=== PATIENT | male | born 1970 | race Hispanic/Latino ===

== ENCOUNTER 2021-09-22 17:33 | Inpatient (IN) | payer SELFPAY ==
[2021-09-22] MEDS ORDERED: NITROGLYCERIN 2% OINT 1 GM TP ONE (19:43)
[2021-09-22] MEDS ORDERED: cloNIDine 0.2 MG TAB PO ONE (19:43)
--- NOTE | 2021-09-22 20:01 | Emergency Department Report ---
HPI - General Chief Complaint: Chest Pain Time Seen by Provider: 09/22/21 19:40 - HPI HPI: Room 2 The patient is a 50-year-old male present with chief complaint of chest pain. The patient states earlier today she developed substernal chest pain and pain aching down both of his arms. Patient denies shortness of breath or nausea/vomiting with the pain but admits to diaphoresis and feeling hot flashes. Patient states when he had his OK 10 years ago he had similar symptoms having hot and cold flashes so this prompted him to come to the emergency department. Patient states his chest pain lasted for approximately 3 to 4 hours but then resolved and he is currently pain-free. Patient states his last cardiac catheterization occurred approximately 9-10 years ago when he had his cardiac stents placed ED Past Medical Hx - Past Medical History Hx Heart Attack/AMI: Yes - Surgical History Hx Coronary Stent: Yes - Family History Family history: no significant - Social History Smoking Status: Current Every Day Smoker (1 pack/day) Substance Use Type: Alcohol (9-10 beers daily), Marijuana - Medications Home Medications: Home Medications Medication Instructions Recorded Confirmed Last Taken Type Aspirin 325 mg PO ONCE 30 Days tablet 03/09/13 Unknown Rx Clopidogrel [Plavix] 75 mg PO QDAY 30 Days tablet 03/09/13 Unknown Rx Metoprolol [Lopressor TAB] 25 mg PO BID 30 Days tablet 03/09/13 Unknown Rx Simvastatin (NF) [Zocor] 40 mg PO QHS 30 Days tablet 03/09/13 Unknown Rx ED Review of Systems ROS: Stated complaint: CHEST/BI ARM PAIN Other details as noted in HPI Constitutional: diaphoresis Eyes: denies: eye pain ENT: denies: throat pain Respiratory: denies: shortness of breath Cardiovascular: chest pain Endocrine: no symptoms reported Gastrointestinal: denies: abdominal pain, nausea, vomiting Genitourinary: denies: dysuria Musculoskeletal: denies: back pain Neurological: denies: headache Physical Exam - Physical Exam Vital Signs: Vital Signs 09/22/21 17:43 Temperature 98.0 F Pulse Rate 93 H Respiratory 18 Rate Blood Pressure 171/103 [Right] O2 Sat by Pulse 97 Oximetry Physical Exam: GENERAL: The patient is well-developed well-nourished male lying on stretcher not appearing to be in acute distress. [] HEENT: Normocephalic. Atraumatic. Extraocular motions are intact. Patient has moist mucous membranes. NECK: Supple. Trachea midline CHEST/LUNGS: Clear to auscultation. There is no respiratory distress noted. HEART/CARDIOVASCULAR: Regular. There is no tachycardia. There is no gallop rub or murmur. ABDOMEN: Abdomen is soft, nontender. Patient has normal bowel sounds. There is no abdominal distention. SKIN: There is no rash. There is no edema. There is no diaphoresis. NEURO: The patient is awake, alert, and oriented. The patient is cooperative. The patient has no focal neurologic deficits. The patient has normal speech. GCS 15 MUSCULOSKELETAL: There is no evidence of acute injury. ED Course Vital Signs 09/22/21 17:43 Temperature 98.0 F Pulse Rate 93 H Respiratory 18 Rate Blood Pressure 171/103 [Right] O2 Sat by Pulse 97 Oximetry - Consultations Consultation #1: 09/22/21 20:43 Cardiology paged 09/22/21 21:38 Case discussed with structures assembler Dr. Rutledge-Heparin drip, Nitropaste, aspirin, Lipitor 80 mg ED Medical Decision Making - Lab Data Result diagrams: 09/22/21 Unknown 09/22/21 Unknown Laboratory Tests 09/22/21 09/22/21 09/22/21 Unknown Unknown Unknown WBC 11.8 H RBC 4.98 Hgb 17.4 H Hct 48.4 H MCV 97 H MCH 35 H MCHC 36 H RDW 14.4 Plt Count 204 Lymph % (Auto) 19.2 [place] % (Auto) 6.5 Eos % (Auto) 0.8 Baso % (Auto) 0.7 Lymph # (Auto) 2.3 [place] # (Auto) 0.8 Eos # (Auto) 0.1 Baso # (Auto) 0.1 Seg Neutrophils % 72.8 H Seg Neutrophils # 8.6 H PT 13.5 INR 0.93 Sodium 134 L Potassium 4.3 Chloride 98.5 Carbon Dioxide 21 L Anion Gap 19 BUN 8 L Creatinine 0.8 Estimated GFR > 60 BUN/Creatinine Ratio 10 Glucose 129 H Calcium 9.2 Total Creatine Kinase 69 CK-MB (CK-2) 1.8 CK-MB (CK-2) Rel Index 2.6 Troponin T 0.039 H NT-Pro-B Natriuret Pep 228.3 Triglycerides 168 H Cholesterol 246 H LDL Cholesterol Direct 161 H HDL Cholesterol 56 Cholesterol/HDL Ratio 4.39 - EKG Data -: EKG Interpreted by Me EKG shows normal: sinus rhythm Rate: normal - EKG Data When compared to previous EKG there are: previous EKG unavailable Interpretation: nonspecific ST-T wave toan - Differential Diagnosis ACS, pericarditis, GERD Critical care attestation.: If time is entered above; I have spent that time in minutes in the direct care of this critically ill patient, excluding procedure time. ED Disposition Clinical Impression: NSTEMI (non-ST elevated myocardial infarction), Chest pain Disposition: 09 ADMITTED INPATIENT Is pt being admited?: Yes Does the pt Need Aspirin: Yes Condition: Fair Instructions: Nonspecific Chest Pain, Adult Time of Disposition: 21:41 (Care transferred to hospitalist (Dr Uribe)) Heart Score - HEART Score History: Moderately suspicious EKG: Non-specific Age: 45-65 Risk factors: 1-2 risk factors Troponin: 1-3x normal limit HEART Score: 5 - EKG Read Time Time EKG Completed: 17:53 EKG Read Time: 17:53
[2021-09-22 20:21] LABS: Basophils # (Auto) 0.1 K/mm3 (0.0-0.1); Basophils % (Auto) 0.7 % (0.0-1.8); Eosinophils # (Auto) 0.1 K/mm3 (0.0-0.4); Eosinophils % (Auto) 0.8 % (0.0-4.3); Lymphocytes # (Auto) 2.3 K/mm3 (1.2-5.4); Lymphocytes % (Auto) 19.2 % (13.4-35.0); Mean Corpuscular HGB Conc 36 % (32-34); Mean Corpuscular Volume 97 fl (84-94); Monocytes # (Auto) 0.8 K/mm3 (0.0-0.8); Monocytes % (Auto) 6.5 % (0.0-7.3); Platelet Count 204 K/mm3 (140-440); Red Blood Count 4.98 M/mm3 (3.65-5.03); Red Cell Distribution Width 14.4 % (13.2-15.2)
[2021-09-22 20:22] LABS: Hematocrit 48.4 % (35.5-45.6); Hemoglobin 17.4 gm/dl (11.8-15.2)
[2021-09-22 20:33] LABS: Creatine Kinase MB 1.8 ng/mL (0.0-4.0)
[2021-09-22 20:34] LABS: BUN/Creatinine Ratio 10; Blood Urea Nitrogen 8 mg/dL (9-20); Calcium 9.2 mg/dL (8.4-10.2); Hemolysis Index 19
[2021-09-22 20:35] LABS: INR 0.93 (0.87-1.13)
[2021-09-22] MEDS ORDERED: HEPARIN 10,000 UNITS/10 ML VIAL IV ONE (20:37)
--- NOTE | 2021-09-22 20:50 | XRay Report ---
CHEST 1 VIEW 09/22/2021 8:13 PM INDICATION / CLINICAL INFORMATION: chest pain. COMPARISON: 03/06/13 FINDINGS: SUPPORT DEVICES: None. HEART / MEDIASTINUM: No significant abnormality. LUNGS / PLEURA: No significant pulmonary or pleural abnormality. No pneumothorax. ADDITIONAL FINDINGS: No significant additional findings. IMPRESSION: 1. No acute findings. Signer Name: Pedro Day MD Signed: 09/22/2021 8:45 PM Workstation Name: [id number]
[2021-09-22 21:35] LABS: Chol/HDL Ratio 4.39 %; HDL Cholesterol 56 mg/dL (40-59); LDL Cholesterol,Direct 161 mg/dL (50-130)
[2021-09-22 22:14] LABS: Partial Thromboplastin Time 182.2 Sec. (24.2-36.6)
[2021-09-22] MEDS: HEPARIN/ 0.45% NACL DRIP 25,000 UNIT/500 ML BAG IV SCH (22:19)
[2021-09-22] MEDS ORDERED: traMADol 50 MG TAB PO PRN (22:52)
[2021-09-22] MEDS ORDERED: ONDANSETRON 4 MG/2 ML INJ IV PRN (22:52)
[2021-09-22] MEDS ORDERED: MORPHINE 4 MG/1 ML INJ IV PRN ×2 (22:52)
[2021-09-22] MEDS ORDERED: MAGNESIUM HYDROXIDE (MOM) ORAL LIQD UDC PO PRN (22:52)
[2021-09-22] MEDS ORDERED: MORPHINE 2 MG/1 ML INJ IV PRN (22:52)
[2021-09-22] MEDS ORDERED: ACETAMINOPHEN 325 MG TAB PO PRN ×2 (22:52)
[2021-09-22] MEDS ORDERED: NITROGLYCERIN 0.4 MG TAB SUBL SL PRN (22:52)
--- NOTE | 2021-09-22 23:03 | History and Physical Report ---
History of Present Illness Date of examination: 09/22/21 Date of admission: 09/22/2021 Chief complaint: Chest Pain History of present illness: 50-year-old male with history of coronary artery disease with stent placement in the past presenting to the emergency room today complaining of chest pain. Chest pain is said to be substernal and radiating to the upper extremities. He denies any headache and denies any diaphoresis. Denies any shortness of breath, no nausea or vomiting and no abdominal pain. He however admits to having some diaphoresis. Chest pain lasted for about 3 to 4 hours prior to reporting to the emergency room. Patient indicates that his symptoms were similar to when he had an ID about 10 years ago during which she had stent placed. He has not followed up with any primary care physician or stringed instrument repairer since then. He continues to smoke about a pack of cigarette daily. Work-up in the emergency room today, lab was significant for troponin level of 0.039. Chest x-ray shows no acute findings. EKG was unremarkable. Findings were discussed with the on-call stringed instrument repairer, recommendation was to commence on heparin drip. Past History Past Medical History: hypertension Past Surgical History: PTCA Social history: smoking (Current daily smoker), alcohol abuse (9-10 beers daily), other (Uses marijuana) Family history: no significant family history Medications and Allergies Allergies Allergy/AdvReac Type Severity Reaction Status Date / Time No Known Allergies Allergy Verified 03/09/13 12:28 Home Medications Medication Instructions Recorded Confirmed Last Taken Type Aspirin 325 mg PO ONCE 30 Days tablet 03/09/13 Unknown Rx Clopidogrel [Plavix] 75 mg PO QDAY 30 Days tablet 03/09/13 Unknown Rx Metoprolol [Lopressor TAB] 25 mg PO BID 30 Days tablet 03/09/13 Unknown Rx Simvastatin (NF) [Zocor] 40 mg PO QHS 30 Days tablet 03/09/13 Unknown Rx Active Meds: Active Medications Atorvastatin Calcium (Atorvastatin 40 Mg Tab) 80 mg PO QHS DELFINA Last Admin: 09/22/21 22:19 Dose: 80 mg Heparin Sodium (Porcine) (Heparin 10,000 Units/10 Ml Vial) 3,600 unit 40 unit/kg (3600 unit) IV Q6H PRN PRN Reason: Anti-Xa Assay<0.1 units/ml Heparin Sodium/Sodium Chloride (Heparin/ 0.45% Nacl-25,000 Unit/500 Ml) 25,000 unit in 500 mls @ 20 mls/hr IV TITRATE DELFINA; Protocol Last Admin: 09/22/21 22:19 Dose: 1,000 units/hr, 20 mls/hr Review of Systems Constitutional: no fever, no chills Ears, nose, mouth and throat: no nasal congestion, no sore throat Cardiovascular: chest pain, no palpitations Respiratory: no cough with sputum, no shortness of breath Gastrointestinal: no abdominal pain, no nausea, no vomiting, no diarrhea Genitourinary Male: no dysuria, no hematuria, no flank pain Musculoskeletal: no neck pain, no low back pain Integumentary: no rash, no pruritis Neurological: no headaches, no confusion Psychiatric: no anxiety, no depression Endocrine: no polyphagia, no polydipsia, no polyuria, no nocturia Exam - Constitutional Vitals: Temp Pulse Resp BP Pulse Ox 98.0 F 92 H 18 163/88 98 09/22/21 17:43 09/22/21 20:01 09/22/21 17:43 09/22/21 20:01 09/22/21 20:35 General appearance: Present: no acute distress, well-nourished - EENT Eyes: Present: PERRL, EOM intact. Absent: scleral icterus ENT: hearing intact, clear oral mucosa, dentition normal - Neck Neck: Present: supple, normal ROM - Respiratory Respiratory effort: normal Respiratory: bilateral: CTA - Cardiovascular Rhythm: regular Heart Sounds: Present: S1 & S2. Absent: gallop, systolic murmur, diastolic murmur, rub, click - Extremities Extremities: no ischemia, pulses intact, pulses symmetrical, No edema, normal temperature, normal color, Full ROM Peripheral Pulses: within normal limits - Abdominal General gastrointestinal: Present: soft, non-tender, non-distended, normal bowel sounds. Absent: mass - Integumentary Integumentary: Present: clear, warm, dry, normal turgor. Absent: rash - Musculoskeletal Musculoskeletal: strength equal bilaterally - Psychiatric Psychiatric: appropriate mood/affect, intact judgment & insight, memory intact, cooperative - Neurologic Neurologic: CNII-XII intact, no focal deficits, moves all extremities HEART Score - HEART Score History: Moderately suspicious EKG: Non-specific Age: 45-65 Risk factors: 1-2 risk factors Troponin: Troponin T 0.039 ng/mL (0.00-0.029) H 09/22/21 Unknown Troponin: 1-3x normal limit HEART Score: 5 Results - Labs CBC & Chem 7: 09/23/21 04:56 09/23/21 04:56 Labs: Abnormal lab results 09/22/21 09/22/21 09/22/21 Range/Units 21:21 Unknown Unknown WBC 11.8 H (4.5-11.0) K/mm3 Hgb 17.4 H (11.8-15.2) gm/dl Hct 48.4 H (35.5-45.6) % MCV 97 H (84-94) fl MCH 35 H (28-32) pg MCHC 36 H (32-34) % Seg Neutrophils % 72.8 H (40.0-70.0) % Seg Neutrophils # 8.6 H (1.8-7.7) K/mm3 APTT 182.2 H* (24.2-36.6) Sec. Sodium 134 L (137-145) mmol/L Carbon Dioxide 21 L (22-30) mmol/L BUN 8 L (9-20) mg/dL Glucose 129 H (75-100) mg/dL Troponin T 0.039 H (0.00-0.029) ng/mL Triglycerides 168 H (2-149) mg/dL Cholesterol 246 H (50-199) mg/dL LDL Cholesterol Direct 161 H (50-130) mg/dL Assessment and Plan - Patient Problems (1) Chest pain Current Visit: Yes Status: Acute Plan to address problem: Patient placed on telemetry. We will check serial cardiac enzymes. Patient started on daily aspirin, sublingual nitroglycerin and IV morphine as needed for chest pain. Will await further evaluation and recommendations from cardiology. (2) Tobacco abuse Current Visit: Yes Status: Acute Plan to address problem: Patient counseled on quitting tobacco abuse. Will offer nicotine patch as needed. (3) Hyperlipemia Current Visit: No Status: Chronic Plan to address problem: Will place on statin. Will monitor lipid profile. (4) DVT prophylaxis Current Visit: Yes Status: Acute Plan to address problem: Patient currently on heparin drip. (5) Full code status Current Visit: Yes Status: Acute Plan to address problem: Patient is full code.
[2021-09-23 05:25] LABS: Basophils # (Auto) 0.1 K/mm3 (0.0-0.1); Basophils % (Auto) 1.1 % (0.0-1.8); Eosinophils # (Auto) 0.2 K/mm3 (0.0-0.4); Eosinophils % (Auto) 1.9 % (0.0-4.3); Hematocrit 47.6 % (35.5-45.6); Hemoglobin 15.9 gm/dl (11.8-15.2); Lymphocytes # (Auto) 3.3 K/mm3 (1.2-5.4); Lymphocytes % (Auto) 28.8 % (13.4-35.0); Mean Corpuscular HGB Conc 33 % (32-34); Mean Corpuscular Volume 98 fl (84-94); Monocytes # (Auto) 0.9 K/mm3 (0.0-0.8); Monocytes % (Auto) 7.5 % (0.0-7.3); Platelet Count 188 K/mm3 (140-440); Red Blood Count 4.84 M/mm3 (3.65-5.03); Red Cell Distribution Width 14.2 % (13.2-15.2)
[2021-09-23 05:40] LABS: BUN/Creatinine Ratio 10; Blood Urea Nitrogen 8 mg/dL (9-20); Calcium 8.8 mg/dL (8.4-10.2); Hemolysis Index 5
[2021-09-23] MEDS: HEPARIN 10,000 UNITS/10 ML VIAL IV PRN ×2 (07:20→15:44)
[2021-09-23] MEDS: ASPIRIN EC 325 MG TAB PO SCH (10:33)
[2021-09-23] MEDS: METOPROLOL TARTRATE 25 MG TAB PO SCH ×2 (10:34→21:56)
[2021-09-23] MEDS: CLOPIDOGREL 75 MG TAB PO SCH (10:37)
[2021-09-23] MEDS ORDERED: SODIUM CHLORIDE 0.9% 500 ML 500 ML IV SCH (11:00)
--- NOTE | 2021-09-23 11:02 | Consultation ---
History of Present Illness Consult date: 09/23/21 Requesting physician: PIETER CRAIN Consult reason: chest pain, elevated troponin History of present illness: 50-year-old male with history of coronary arterial disease noncompliant with medications or follow-up. Is a smoker unmotivated to quit. Presents with midsternal chest pain rating to left arm. Relieved after nitroglycerin. Denies any nausea vomiting shortness of breath or syncope. Patient abnormal troponin was admitted for non-STEMI type I. On exam patient currently chest pain-free. Discussed about cardiac catheterization for definitive diagnosis. Patient wants to leave AGAINST MEDICAL ADVICE explained the risk of such decision making. Urged patient to stay. Continue heparin aspirin beta-aubree and high-dose statin. Past History Past Medical History: CAD, hypertension, hyperlipidemia Past Surgical History: PTCA Social history: smoking (Current daily smoker), alcohol abuse (9-10 beers daily), other (Uses marijuana) Family history: no significant family history Medications and Allergies Allergies Allergy/AdvReac Type Severity Reaction Status Date / Time No Known Allergies Allergy Verified 03/09/13 12:28 Home Medications Medication Instructions Recorded Confirmed Last Taken Type Aspirin 325 mg PO ONCE 30 Days tablet 03/09/13 Unknown Rx Clopidogrel [Plavix] 75 mg PO QDAY 30 Days tablet 03/09/13 Unknown Rx Metoprolol [Lopressor TAB] 25 mg PO BID 30 Days tablet 03/09/13 Unknown Rx Simvastatin (NF) [Zocor] 40 mg PO QHS 30 Days tablet 03/09/13 Unknown Rx Active Meds: Active Medications Acetaminophen (Acetaminophen 325 Mg Tab) 650 mg PO Q4H PRN PRN Reason: Pain MILD(1-3)/Fever >100.5/OSEGUERA Aspirin (Aspirin Ec 325 Mg Tab) 325 mg PO QDAY [facility] Last Admin: 09/23/21 10:33 Dose: 325 mg Atorvastatin Calcium (Atorvastatin 40 Mg Tab) 80 mg PO QHS [facility] Last Admin: 09/22/21 22:19 Dose: 80 mg Clopidogrel Bisulfate (Clopidogrel 75 Mg Tab) 75 mg PO QDAY [facility] Last Admin: 09/23/21 10:37 Dose: 75 mg Heparin Sodium (Porcine) (Heparin 10,000 Units/10 Ml Vial) 3,600 unit 40 unit/kg (3600 unit) IV Q6H PRN PRN Reason: Anti-Xa Assay<0.1 units/ml Last Admin: 09/23/21 07:20 Dose: 3,600 unit Heparin Sodium/Sodium Chloride (Heparin/ 0.45% Nacl-25,000 Unit/500 Ml) 25,000 unit in 500 mls @ 20 mls/hr IV TITRATE DELFINA; Protocol Last Admin: 09/22/21 22:19 Dose: 1,000 units/hr, 20 mls/hr Sodium Chloride (Nacl 0.9% 500 Ml) 500 mls @ 50 mls/hr IV DIRECT DELFINA Stop: 09/23/21 20:59 Magnesium Hydroxide (Magnesium Hydroxide (Mom) Oral Liqd Udc) 30 ml PO Q4H PRN PRN Reason: Constipation Metoprolol Tartrate (Metoprolol Tartrate 25 Mg Tab) 25 mg PO BID [facility] Last Admin: 09/23/21 10:34 Dose: 25 mg Morphine Sulfate (Morphine 2 Mg/1 Ml Inj) 2 mg IV Q4H PRN PRN Reason: Pain, Moderate (4-6) Morphine Sulfate (Morphine 4 Mg/1 Ml Inj) 4 mg IV Q4H PRN PRN Reason: Pain , Severe (7-10) Morphine Sulfate (Morphine 4 Mg/1 Ml Inj) 2 mg IV Q5MIN PRN PRN Reason: Chest Pain unrelieved by NTG Nitroglycerin (Nitroglycerin 0.4 Mg Tab Subl) 0.4 mg SL Q5M PRN PRN Reason: Chest Pain Ondansetron HCl (Ondansetron 4 Mg/2 Ml Inj) 4 mg IV Q8H PRN PRN Reason: Nausea And Vomiting Sodium Chloride (Sodium Chloride 0.9% 10 Ml Flush Syringe) 10 ml IV BID [facility] Last Admin: 09/23/21 10:34 Dose: 10 ml Sodium Chloride (Sodium Chloride 0.9% 10 Ml Flush Syringe) 10 ml IV PRN PRN PRN Reason: LINE FLUSH Sodium Chloride (Sodium Chloride 0.9% 10 Ml Flush Syringe) 10 ml IV PRN PRN PRN Reason: LINE FLUSH Tramadol HCl (Tramadol 50 Mg Tab) 50 mg PO Q6H PRN PRN Reason: Pain, Moderate (4-6) Review of Systems All systems: negative (As per the HPI) Physical Examination Vital Signs Temp Pulse Resp BP Pulse Ox 98.0 F 93 H 18 171/103 97 09/22/21 17:43 04/16/22 17:43 09/22/21 17:43 09/22/21 17:43 09/22/21 17:43 General appearance: no acute distress, well-nourished HEENT: Positive: PERRL, Mucus Membranes Moist Neck: Positive: neck supple, trachea midline Cardiac: Positive: Reg Rate and Rhythm, S1/S2. Negative: Audible Murmur Lungs: Positive: clear to auscultation, Normal Breath Sounds Neuro: Positive: Grossly Intact Abdomen: Positive: Soft, Active Bowel Sounds. Negative: Tender, Distended Male genitourinary: Positive: normal Skin: Positive: Clear Incision: Cardiac Cath Site Musculoskeletal: No Pain, Normal Range of Motion Extremities: Present: normal. Absent: edema Results 09/23/21 04:56 09/23/21 04:56 Cardiac Enzymes 09/22/21 Range/Units Unknown CK-MB (CK-2) 1.8 (0.0-4.0) ng/mL Coagulation 09/22/21 09/22/21 Range/Units 21:21 Unknown PT 14.3 13.5 (12.2-14.9) Sec. INR 1.00 0.93 (0.87-1.13) APTT 182.2 H* (24.2-36.6) Sec. Lipids 09/22/21 Range/Units Unknown Triglycerides 168 H (2-149) mg/dL Cholesterol 246 H (50-199) mg/dL HDL Cholesterol 56 (40-59) mg/dL Cholesterol/HDL Ratio 4.39 % CBC 09/22/21 09/23/21 Range/Units Unknown 04:56 WBC 11.8 H 11.6 H (4.5-11.0) K/mm3 RBC 4.98 4.84 (3.65-5.03) M/mm3 Hgb 17.4 H 15.9 H (11.8-15.2) gm/dl Hct 48.4 H 47.6 H (35.5-45.6) % Plt Count 204 188 (140-440) K/mm3 Lymph # (Auto) 2.3 3.3 (1.2-5.4) K/mm3 [place] # (Auto) 0.8 0.9 H (0.0-0.8) K/mm3 Eos # (Auto) 0.1 0.2 (0.0-0.4) K/mm3 Baso # (Auto) 0.1 0.1 (0.0-0.1) K/mm3 Comprehensive Metabolic Panel 09/22/21 09/23/21 Range/Units Unknown 04:56 Sodium 134 L 133 L (137-145) mmol/L Potassium 4.3 3.8 (3.6-5.0) mmol/L Chloride 98.5 97.8 L (98-107) mmol/L Carbon Dioxide 21 L 25 (22-30) mmol/L BUN 8 L 8 L (9-20) mg/dL Creatinine 0.8 0.8 (0.8-1.3) mg/dL Glucose 129 H 101 H (75-100) mg/dL Calcium 9.2 8.8 (8.4-10.2) mg/dL EKG interpretations - Telemetry EKG Rhythm: Sinus Rhythm (Sinus rhythm nonspecific ST-T) Assessment and Plan 50-year-old male noncompliant with medication tobacco abuse EtOH abuse hyperlip idemia coronary arterial disease presents with acute coronary syndrome non-STEMI type I will arrange for left heart catheterization a.m. Currently chest pain- free. Aspirin statin beta-aubree IV heparin stopped 4 hours prior to procedure. - Patient Problems (1) NSTEMI (non-ST elevated myocardial infarction) Current Visit: Yes Status: Acute (2) Tobacco abuse Current Visit: Yes Status: Acute (3) Hyperlipemia Current Visit: No Status: Chronic Qualifiers: Hyperlipidemia type: mixed hyperlipidemia Qualified Code(s): E78.2 - Mixed hyperlipidemia (4) CAD (coronary artery disease) Current Visit: Yes Status: Chronic Qualifiers: Coronary Disease-Associated Artery/Lesion type: [place] artery Associated angina: with unstable angina
--- NOTE | 2021-09-23 11:15 | Progress Note ---
Assessment and Plan Assessment and plan: #NSTEMI -Patient on heparin drip -Mild troponin elevation; EKG without acute changes -telemetry -TTE ordered -Patient offered cardiac catheterization by Cardiology tomorrow; NPO after midnight #Coronary artery disease s/p stenting -patient had stent placed 10 years ago -will resume BB + ASA + statin #Polycythemia -elevated H&H -likely secondary from heavy tobacco use #Tobacco abuse #Tobacco cessation counseling -patient declined nicotine patch -smoking cessation counseling, supportive care, behavior change counseling, +15 minutes. #Hyperlipemia -continue statin #Advanced care planning -Disease education conducted, care plan discussed, diagnoses discussed, prognosi s discussed, and patient acknowledges understanding with care plan -Time: +30 min History Interval history: No acute events overnight. Patient denies chest pain and arm pain that was present on admission. Patient eager to leave and contemplating leaving AMA. Discussed risks and benefits and patient agreed to await cardiology evaluation. Hospitalist Physical - Physical exam Narrative exam: GENERAL: Well-developed well-nourished. In no acute distress. HEENT: Normocephalic. Atraumatic. NECK: Supple. CHEST/LUNGS: CTAB on room air HEART/CARDIOVASCULAR: RRR. No murmur, rubs or gallops appreciated. ABDOMEN: +BS. NT/ND. SKIN: No rashes noted. NEURO: No focal motor deficit. Follows all commands. EXTREMITIES: No cyanosis, clubbing or edema. PSYCH: Cooperative. - Constitutional Vitals: Temp Pulse Resp BP Pulse Ox 98.4 F 73 16 124/83 95 09/23/21 07:54 09/23/21 07:54 09/23/21 07:54 09/23/21 07:54 09/23/21 07:54 General appearance: Present: no acute distress, well-nourished HEART Score - HEART Score EKG: Non-specific Age: 45-65 Risk factors: 1-2 risk factors Troponin: Troponin T 0.081 ng/mL (0.00-0.029) H D 09/23/21 09:00 Troponin: 1-3x normal limit Results - Labs CBC & Chem 7: 09/23/21 04:56 09/23/21 04:56 Labs: Laboratory Last Values WBC 11.6 K/mm3 (4.5-11.0) H 09/23/21 04:56 RBC 4.84 M/mm3 (3.65-5.03) 09/23/21 04:56 Hgb 15.9 gm/dl (11.8-15.2) H 09/23/21 04:56 Hct 47.6 % (35.5-45.6) H 09/23/21 04:56 MCV 98 fl (84-94) H 09/23/21 04:56 MCH 33 pg (28-32) H 09/23/21 04:56 MCHC 33 % (32-34) 09/23/21 04:56 RDW 14.2 % (13.2-15.2) 09/23/21 04:56 Plt Count 188 K/mm3 (140-440) 09/23/21 04:56 Lymph % (Auto) 28.8 % (13.4-35.0) 09/23/21 04:56 [place] % (Auto) 7.5 % (0.0-7.3) H 09/23/21 04:56 Eos % (Auto) 1.9 % (0.0-4.3) 09/23/21 04:56 Baso % (Auto) 1.1 % (0.0-1.8) 09/23/21 04:56 Lymph # (Auto) 3.3 K/mm3 (1.2-5.4) 09/23/21 04:56 [place] # (Auto) 0.9 K/mm3 (0.0-0.8) H 09/23/21 04:56 Eos # (Auto) 0.2 K/mm3 (0.0-0.4) 09/23/21 04:56 Baso # (Auto) 0.1 K/mm3 (0.0-0.1) 09/23/21 04:56 Seg Neutrophils % 60.7 % (40.0-70.0) 09/23/21 04:56 Seg Neutrophils # 7.0 K/mm3 (1.8-7.7) 09/23/21 04:56 PT 13.5 Sec. (12.2-14.9) 09/22/21 Unknown INR 0.93 (0.87-1.13) 09/22/21 Unknown APTT 182.2 Sec. (24.2-36.6) H* 09/22/21 21:21 Heparin Anti-Xa Level < 0.10 U.I./ml (0.3-0.7) L 09/23/21 04:56 Sodium 133 mmol/L (137-145) L 09/23/21 04:56 Potassium 3.8 mmol/L (3.6-5.0) 09/23/21 04:56 Chloride 97.8 mmol/L (98-107) L 09/23/21 04:56 Carbon Dioxide 25 mmol/L (22-30) 09/23/21 04:56 Anion Gap 14 mmol/L 09/23/21 04:56 BUN 8 mg/dL (9-20) L 09/23/21 04:56 Creatinine 0.8 mg/dL (0.8-1.3) 09/23/21 04:56 Estimated GFR > 60 ml/min 09/23/21 04:56 BUN/Creatinine Ratio 10 % 09/23/21 04:56 Glucose 101 mg/dL (75-100) H 09/23/21 04:56 Calcium 8.8 mg/dL (8.4-10.2) 09/23/21 04:56 Total Creatine Kinase 69 units/L (55-170) 09/22/21 Unknown CK-MB (CK-2) 1.8 ng/mL (0.0-4.0) 09/22/21 Unknown CK-MB (CK-2) Rel Index 2.6 (0-4) 09/22/21 Unknown Troponin T 0.081 ng/mL (0.00-0.029) H D 09/23/21 09:00 NT-Pro-B Natriuret Pep 228.3 pg/mL (0-900) 09/22/21 Unknown Triglycerides 168 mg/dL (2-149) H 09/22/21 Unknown Cholesterol 246 mg/dL (50-199) H 09/22/21 Unknown LDL Cholesterol Direct 161 mg/dL (50-130) H 09/22/21 Unknown HDL Cholesterol 56 mg/dL (40-59) 09/22/21 Unknown Cholesterol/HDL Ratio 4.39 % 09/22/21 Unknown Gregory/IV: Voiding Method Urinal Active Medications - Current Medications Current Medications: Generic Name Dose Route Start Last Admin Trade Name Freq PRN Reason Stop Dose Admin Acetaminophen 650 mg 04/16/22 22:52 Acetaminophen 325 Mg Tab PO Q4H PRN Pain MILD(1-3)/Fever >100.5/OSEGUERA Aspirin 325 mg 09/23/21 10:00 09/23/21 10:33 Aspirin Ec 325 Mg Tab PO 325 mg QDAY DELFINA Administration Atorvastatin Calcium 80 mg 09/22/21 22:00 09/22/21 22:19 Atorvastatin 40 Mg Tab PO 80 mg QHS [facility] Administration Clopidogrel Bisulfate 75 mg 09/23/21 10:00 09/23/21 10:37 Clopidogrel 75 Mg Tab PO 75 mg QDAY DELFINA Administration Heparin Sodium (Porcine) 3,600 unit 09/22/21 20:37 09/23/21 07:20 Heparin 10,000 Units/10 Ml Vial 40 unit/kg (3600 unit) 3,600 unit IV Administration Q6H PRN Anti-Xa Assay<0.1 units/ml Heparin Sodium/Sodium Chloride 25,000 unit in 500 mls @ 20 mls/hr 09/22/21 21:00 09/22/21 22:19 Heparin/ 0.45% Nacl-25,000 Unit/500 Ml IV 09/23/21 23:59 1,000 units/hr TITRATE DELFINA 20 mls/hr Administration Protocol 1,000 UNITS/HR Sodium Chloride 500 mls @ 50 mls/hr 09/23/21 11:00 Nacl 0.9% 500 Ml IV 09/23/21 20:59 DIRECT [facility] Magnesium Hydroxide 30 ml 09/22/21 22:52 Magnesium Hydroxide (Mom) Oral Liqd Udc PO Q4H PRN Constipation Metoprolol Tartrate 25 mg 09/23/21 10:00 09/23/21 10:34 Metoprolol Tartrate 25 Mg Tab PO 25 mg BID DELFINA Administration Morphine Sulfate 2 mg 09/22/21 22:52 Morphine 2 Mg/1 Ml Inj IV Q4H PRN Pain, Moderate (4-6) Morphine Sulfate 4 mg 09/22/21 22:52 Morphine 4 Mg/1 Ml Inj IV Q4H PRN Pain , Severe (7-10) Morphine Sulfate 2 mg 09/22/21 22:52 Morphine 4 Mg/1 Ml Inj IV Q5MIN PRN Chest Pain unrelieved by NTG Nitroglycerin 0.4 mg 09/22/21 22:52 Nitroglycerin 0.4 Mg Tab Subl SL Q5M PRN Chest Pain Ondansetron HCl 4 mg 09/22/21 22:52 Ondansetron 4 Mg/2 Ml Inj IV Q8H PRN Nausea And Vomiting Sodium Chloride 10 ml 09/23/21 10:00 09/23/21 10:34 Sodium Chloride 0.9% 10 Ml Flush Syringe IV 10 ml BID DELFINA Administration Sodium Chloride 10 ml 09/22/21 22:52 Sodium Chloride 0.9% 10 Ml Flush Syringe IV PRN PRN LINE FLUSH Sodium Chloride 10 ml 09/22/21 22:52 Sodium Chloride 0.9% 10 Ml Flush Syringe IV PRN PRN LINE FLUSH Tramadol HCl 50 mg 09/22/21 22:52 Tramadol 50 Mg Tab PO Q6H PRN Pain, Moderate (4-6)
[2021-09-23] MEDS: NICOTINE 21 MG/24 HR PATCH TD SCH (13:51)
[2021-09-23 14:50] LABS: Blood Urea Nitrogen 9 mg/dL (9-20); Calcium 8.9 mg/dL (8.4-10.2); Hemolysis Index 5
[2021-09-23 14:53] LABS: BUN/Creatinine Ratio 13
[2021-09-23 15:11] LABS: Basophils # (Auto) 0.1 K/mm3 (0.0-0.1); Basophils % (Auto) 1.1 % (0.0-1.8); Eosinophils # (Auto) 0.1 K/mm3 (0.0-0.4); Eosinophils % (Auto) 1.2 % (0.0-4.3); Hematocrit 49.8 % (35.5-45.6); Hemoglobin 16.7 gm/dl (11.8-15.2); Lymphocytes # (Auto) 2.8 K/mm3 (1.2-5.4); Lymphocytes % (Auto) 28.2 % (13.4-35.0); Mean Corpuscular HGB Conc 33 % (32-34); Mean Corpuscular Volume 99 fl (84-94); Monocytes # (Auto) 0.7 K/mm3 (0.0-0.8); Monocytes % (Auto) 6.9 % (0.0-7.3); Platelet Count 191 K/mm3 (140-440); Red Blood Count 5.05 M/mm3 (3.65-5.03); Red Cell Distribution Width 14.2 % (13.2-15.2)
[2021-09-23 15:20] LABS: INR 0.9 (0.87-1.13)
[2021-09-23] MEDS: HEPARIN/ 0.45% NACL DRIP 25,000 UNIT/500 ML BAG IV SCH (19:20)
[2021-09-23] MEDS ORDERED: NON-FORMULARY EACH (Simvastatin (Nf) 40 MG Tablet) PO SCH (22:00)
[2021-09-24 06:04] LABS: Hematocrit 48.5 % (35.5-45.6); Hemoglobin 16.5 gm/dl (11.8-15.2)
[2021-09-24 07:04] LABS: Blood Urea Nitrogen 6 mg/dL (9-20); Hemolysis Index 17
[2021-09-24 07:35] LABS: BUN/Creatinine Ratio 9
[2021-09-24] MEDS: ASPIRIN EC 325 MG TAB PO SCH (10:00)
[2021-09-24] MEDS: METOPROLOL TARTRATE 25 MG TAB PO SCH ×3 (10:00→21:31)
[2021-09-24] MEDS: NICOTINE 21 MG/24 HR PATCH TD SCH ×2 (10:00→12:55)
[2021-09-24] MEDS: CLOPIDOGREL 75 MG TAB PO SCH (10:00)
[2021-09-24] MEDS ORDERED: HEPARIN 10,000 UNITS/10 ML VIAL ONE ×2 (10:32→11:08)
[2021-09-24] MEDS ORDERED: MIDAZOLAM 2 MG/2 ML INJ ONE (10:33)
[2021-09-24] MEDS ORDERED: LIDOCAINE (1%) 10 MG/1 ML VIAL 20 ML MDV ONE (10:33)
[2021-09-24] MEDS ORDERED: VERAPAMIL 5 MG/2 ML INJ ONE (10:33)
[2021-09-24] MEDS ORDERED: fentaNYL 100 MCG/2 ML INJ ONE (10:33)
[2021-09-24] MEDS: SODIUM CHLORIDE 0.9% 500 ML 500 ML IV SCH ×2 (10:45→12:15)
[2021-09-24] MEDS: NITROGLYCERIN SYRINGE 3 ML ONE ×2 (10:48→12:27)
[2021-09-24] MEDS: HEPARIN/NS 5000 UNIT/500ML 1,000 ML IR ONE ×2 (10:50→12:28)
[2021-09-24] MEDS ORDERED: HEPARIN 10,000 UNIT/1 ML VIAL ONE (11:08)
[2021-09-24] MEDS ORDERED: ALUM-MAG HYDROXIDE-SIMETHICONE 200-200-20MG/5ML ORAL LIQD 30 ML ONE (11:11)
[2021-09-24] MEDS ORDERED: CLOPIDOGREL 300 MG TAB ONE ×2 (11:11→11:12)
--- NOTE | 2021-09-24 11:53 | Cardiac Catherization Report ---
DATE OF SERVICE: 09/24/2021 LEFT HEART CATHETERIZATION, PERCUTANEOUS CORONARY INTERVENTION REPORT, INTRAVASCULAR ULTRASOUND REPORT CLINICAL INFORMATION: This is a 50-year-old gentleman with history of known coronary artery disease, PCI in 2012 of the RCA, who presents with chest pain and non-STEMI, has mild LV dysfunction and inferior wall hypokinesis noncompliant with medications. Alcohol and tobacco abuse. Procedure was done with moderate sedation started at 10:45 finished at 11:15, 30 minutes of moderate sedation. DESCRIPTION OF PROCEDURE: Procedure was done via the right radial artery, sterile technique and local anesthesia. A 6-Amharic radial sheath inserted. Left system with JL3.5 catheter. Left main is large and patent, bifurcates into large LAD, is patent. Diagonal 1 small caliber vessel is patent. Circumflex medium caliber vessel, proximal patent, mid 50% bifurcation prior to the bifurcation of OM1 and OM2, which are small to medium caliber vessel, is patent. RCA is engaged with JR4 is a large, dominant vessel. Proximal stent in mid stent, in-stent restenosis 80%, distal patent PDA and PLV are patent. LV gram done in [place] and MORALES view shows mild LV dysfunction, EF 40-45%, inferior wall hypokinesis. LVEDP of 15 mmHg, LV is 124, aortic is 124/74. No gradient across the aortic valve on pullback. 1. Percutaneous coronary intervention of RCA engaged to RCA with a JR4 guiding catheter. 2. Crossed into the distal PLV with a short [place] wire. 3. Intravascular ultrasound showed stent was opposed, but in-stent restenosis 80%. 4. Direct stent of the mid RCA with a drug-eluting Resolute 3.5 x 30 mm at reference vessel was 3.5 x 8 inflated at 18 atmospheres. Angiogram showed edge dissection proximally, so then stented the proximal portion of the stent overlapping with a drug-eluting Resolute 3.5 x 12 inflated at 18 atmospheres using stent balloon inflated at 20 atmospheres and the overlap region. 5. Excellent angiographic result, increased flow into the PDA, PLV, which are medium caliber vessels. 6. A repeat intravascular ultrasound showed stent was well opposed and expanded within the stent. 7. Remove coronary wire and IVUS. Multiple angiograms, SCOTTY 3 flow, reduced stenosis from 80% down to 0. Increased flow and size of the PDA, PLV. No dissection or perforation noted. A 6-Amharic guiding catheter taken over a guidewire. A 6-Amharic radial sheath was discontinued. Radial band applied. No hematoma, no bleeding. SUMMARY: 1. Successful PCI of the mid RCA for in-stent restenosis with a drug-eluting Resolute 3.5 x 30 and a 3.5 x 12 inflated at 18-20 atmospheres. IVUS directed with a reference vessel 3.5 x 3.8 mm. 2. Left main patent, LAD patent, diagonal patent, circumflex proximal patent, mid 50% prior to bifurcation of OM1 and OM2, which are small to medium caliber vessel patent with borderline and mild LV dysfunction and inferior posterior wall hypokinesis. Discussed about smoking cessation, aspirin, Plavix loading was given. TID: [id number] RECEIPT: [id number] ZULLY/BRETT
[2021-09-24] MEDS ORDERED: SODIUM CHLORIDE 0.9% 1000 ML 1,000 ML IV SCH (12:00)
[2021-09-24] MEDS: LOSARTAN 25 MG TAB PO SCH (12:54)
--- NOTE | 2021-09-24 14:13 | Electrocardiograph Report ---
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
--- NOTE | 2021-09-24 14:16 | Electrocardiograph Report ---
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
--- NOTE | 2021-09-24 14:17 | Electrocardiograph Report ---
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
--- NOTE | 2021-09-24 15:03 | Progress Note ---
Assessment and Plan Assessment and plan: #NSTEMI -heparin drip discontinued -Mild troponin elevation; EKG without acute changes -telemetry -Cardiac cath today: 2 SANTOSH placed -Cardiology following, assistance appreciated #Coronary artery disease s/p stenting -patient had stent placed 10 years ago -continue BB + ASA + statin #Diastolic and systolic heart failure -TTE: EF 40% -not in acute exacerbation #Polycythemia -elevated H&H -likely secondary from heavy tobacco use #Tobacco abuse #Tobacco cessation counseling -patient declined nicotine patch -smoking cessation counseling, supportive care, behavior change counseling, +15 minutes. #Hyperlipemia -continue statin #Advanced care planning -Disease education conducted, care plan discussed, diagnoses discussed, prognosis discussed, and patient acknowledges understanding with care plan -Time: +30 min History Interval history: No acute events overnight. Patient returned from cardiac catheterization. Has brace applied to right wrist. Currently having no chest pain or shortness of breath. Hospitalist Physical - Physical exam Narrative exam: GENERAL: Well-developed well-nourished. In no acute distress. CHEST/LUNGS: CTAB on room air HEART/CARDIOVASCULAR: RRR. No murmur, rubs or gallops appreciated. ABDOMEN: +BS. NT/ND. NEURO: No focal motor deficit. Follows all commands. EXTREMITIES: R upper extremity with hemostat. No cyanosis, clubbing or edema. PSYCH: Cooperative. - Constitutional Vitals: Temp Pulse Resp BP Pulse Ox 98 F 61 23 156/106 93 09/24/21 12:15 09/24/21 12:15 09/24/21 12:15 09/24/21 12:15 09/24/21 12:15 General appearance: Present: no acute distress, well-nourished HEART Score - HEART Score EKG: Non-specific Age: 45-65 Risk factors: 1-2 risk factors Troponin: Troponin T 0.081 ng/mL (0.00-0.029) H D 09/23/21 09:00 Troponin: 1-3x normal limit Results - Labs CBC & Chem 7: 09/24/21 05:31 09/24/21 05:31 Labs: Laboratory Last Values WBC 9.9 K/mm3 (4.5-11.0) 09/23/21 Unknown RBC 5.05 M/mm3 (3.65-5.03) H 09/23/21 Unknown Hgb 16.5 gm/dl (11.8-15.2) H 09/24/21 05:31 Hct 48.5 % (35.5-45.6) H 09/24/21 05:31 MCV 99 fl (84-94) H 09/23/21 Unknown MCH 33 pg (28-32) H 09/23/21 Unknown MCHC 33 % (32-34) 09/23/21 Unknown RDW 14.2 % (13.2-15.2) 09/23/21 Unknown Plt Count 180 K/mm3 (140-440) 09/24/21 05:31 Lymph % (Auto) 28.2 % (13.4-35.0) 09/23/21 Unknown [place] % (Auto) 6.9 % (0.0-7.3) 09/23/21 Unknown Eos % (Auto) 1.2 % (0.0-4.3) 09/23/21 Unknown Baso % (Auto) 1.1 % (0.0-1.8) 09/23/21 Unknown Lymph # (Auto) 2.8 K/mm3 (1.2-5.4) 09/23/21 Unknown [place] # (Auto) 0.7 K/mm3 (0.0-0.8) 09/23/21 Unknown Eos # (Auto) 0.1 K/mm3 (0.0-0.4) 09/23/21 Unknown Baso # (Auto) 0.1 K/mm3 (0.0-0.1) 09/23/21 Unknown Seg Neutrophils % 62.6 % (40.0-70.0) 09/23/21 Unknown Seg Neutrophils # 6.2 K/mm3 (1.8-7.7) 09/23/21 Unknown PT 13.1 Sec. (12.2-14.9) 09/23/21 Unknown INR 0.90 (0.87-1.13) 09/23/21 Unknown APTT 182.2 Sec. (24.2-36.6) H* 09/22/21 21:21 Heparin Anti-Xa Level 0.34 U.I./ml (0.3-0.7) 09/23/21 20:10 Sodium 134 mmol/L (137-145) L 09/24/21 05:31 Potassium 4.0 mmol/L (3.6-5.0) 09/24/21 05:31 Chloride 99.5 mmol/L (98-107) 09/24/21 05:31 Carbon Dioxide 24 mmol/L (22-30) 09/24/21 05:31 Anion Gap 15 mmol/L 09/24/21 05:31 BUN 6 mg/dL (9-20) L 09/24/21 05:31 Creatinine 0.7 mg/dL (0.8-1.3) L 09/24/21 05:31 Estimated GFR > 60 ml/min 09/24/21 05:31 BUN/Creatinine Ratio 9 % 09/24/21 05:31 Glucose 93 mg/dL (75-100) 09/24/21 05:31 Calcium 9.0 mg/dL (8.4-10.2) 09/24/21 05:31 Total Creatine Kinase 69 units/L (55-170) 09/22/21 Unknown CK-MB (CK-2) 1.8 ng/mL (0.0-4.0) 09/22/21 Unknown CK-MB (CK-2) Rel Index 2.6 (0-4) 09/22/21 Unknown Troponin T 0.081 ng/mL (0.00-0.029) H D 09/23/21 09:00 NT-Pro-B Natriuret Pep 228.3 pg/mL (0-900) 09/22/21 Unknown Triglycerides 168 mg/dL (2-149) H 09/22/21 Unknown Cholesterol 246 mg/dL (50-199) H 09/22/21 Unknown LDL Cholesterol Direct 161 mg/dL (50-130) H 09/22/21 Unknown HDL Cholesterol 56 mg/dL (40-59) 09/22/21 Unknown Cholesterol/HDL Ratio 4.39 % 09/22/21 Unknown Gregory/IV: Voiding Method Toilet Active Medications - Current Medications Current Medications: Generic Name Dose Route Start Last Admin Trade Name Freq PRN Reason Stop Dose Admin Acetaminophen 650 mg 09/22/21 22:52 Acetaminophen 325 Mg Tab PO Q4H PRN Pain MILD(1-3)/Fever >100.5/OSEGUERA Aspirin 81 mg 09/25/21 10:00 Aspirin 81 Mg Tab Chew PO QDAY [facility] Atorvastatin Calcium 80 mg 09/22/21 22:00 09/23/21 21:56 Atorvastatin 40 Mg Tab PO 80 mg QHS DELFINA Administration Clopidogrel Bisulfate 75 mg 09/23/21 10:00 09/24/21 10:00 Clopidogrel 75 Mg Tab PO 75 mg QDAY DELFINA Administration Sodium Chloride 500 mls @ 50 mls/hr 09/24/21 10:00 09/24/21 10:45 Nacl 0.9% 500 Ml IV 450 mls DIRECT DELFINA Administration Sodium Chloride 1,000 mls @ 75 mls/hr 09/24/21 12:00 Nacl 0.9% 1000 Ml IV 09/25/21 01:19 DIRECT DELFINA Losartan Potassium 25 mg 09/24/21 12:00 09/24/21 12:54 Losartan 25 Mg Tab PO 25 mg QDAY DELFINA Administration Magnesium Hydroxide 30 ml 09/22/21 22:52 Magnesium Hydroxide (Mom) Oral Liqd Udc PO Q4H PRN Constipation Metoprolol Tartrate 25 mg 09/23/21 10:00 09/24/21 12:55 Metoprolol Tartrate 25 Mg Tab PO 25 mg BID DELFINA Administration Morphine Sulfate 2 mg 09/22/21 22:52 Morphine 2 Mg/1 Ml Inj IV Q4H PRN Pain, Moderate (4-6) Morphine Sulfate 4 mg 09/22/21 22:52 Morphine 4 Mg/1 Ml Inj IV Q4H PRN Pain , Severe (7-10) Morphine Sulfate 2 mg 09/22/21 22:52 Morphine 4 Mg/1 Ml Inj IV Q5MIN PRN Chest Pain unrelieved by NTG Nicotine 21 mg 09/23/21 14:00 09/24/21 12:55 Nicotine 21 Mg/24 Hr Patch TD 21 mg QDAY DELFINA Administration Nitroglycerin 0.4 mg 09/22/21 22:52 Nitroglycerin 0.4 Mg Tab Subl SL Q5M PRN Chest Pain Ondansetron HCl 4 mg 09/22/21 22:52 Ondansetron 4 Mg/2 Ml Inj IV Q8H PRN Nausea And Vomiting Sodium Chloride 10 ml 09/23/21 10:00 09/24/21 10:00 Sodium Chloride 0.9% 10 Ml Flush Syringe IV Not Given BID DELFINA Sodium Chloride 10 ml 09/22/21 22:52 Sodium Chloride 0.9% 10 Ml Flush Syringe IV PRN PRN LINE FLUSH Tramadol HCl 50 mg 09/22/21 22:52 Tramadol 50 Mg Tab PO Q6H PRN Pain, Moderate (4-6)
--- NOTE | 2021-09-24 16:23 | Progress Note ---
Assessment and Plan 50-year-old male with history of coronary arterial disease noncompliant with medications or follow-up. Is a smoker unmotivated to quit. Presents with midsternal chest pain rating to left arm. S/p PCI to RCA Assessment: Acute coronary syndrome NSTEMI Coronary artery disease Hyperlipidemia Tobacco abuse Alcohol abuse Medication noncompliance Cardiographics Cardiac catheterization 09/24/2021 : 1. Successful PCI with drug-eluting stent of the mid RCA for in-stent restenosis with a drug-eluting stent 2. Left main patent, LAD patent, diagonal patent, circumflex proximal patent, mid 50% prior to bifurcation of OM1 and OM2, which are small to medium caliber vessel patent with borderline and mild LV dysfunction and inferior posterior wall hypokinesis EKG 09/23/21: Sinus rhythm with nonspecific intraventricular conduction, inferolateral oldinfarct Echocardiogram 09/22/2021: LVEF 40 to 45%. Hypokinesis in the inferior wall Assessment/Plan: GDMT: Continue aspirin, metoprolol 25 mg p.o. twice daily, atorvastatin 80 mg p.o. nightly, Plavix 75 mg p.o. daily, losartan 25 mg p.o. daily Right radial puncture site clean dry and intact. No bleeding no hematoma Continue present management Education provided on smoking cessation and lifestyle modification. Patient seen in conjunction with Dr. Rutledge who agrees with the assessment and management of this patient. - Patient Problems (1) Chest pain Current Visit: Yes Status: Acute (2) NSTEMI (non-ST elevated myocardial infarction) Current Visit: Yes Status: Acute (3) Tobacco abuse Current Visit: Yes Status: Acute (4) CAD (coronary artery disease) Current Visit: Yes Status: Chronic Qualifiers: Coronary Disease-Associated Artery/Lesion type: [place] artery Associated angina: with unstable angina (5) Hyperlipemia Current Visit: Yes Status: Chronic Qualifiers: Hyperlipidemia type: mixed hyperlipidemia Qualified Code(s): E78.2 - Mixed hyperlipidemia Subjective Date of service: 09/24/21 Principal diagnosis: NSTEMI Interval history: Patient seen and examined the hospital room today. Right radial incision clean dry intact. No bleeding or hematoma. Patient is chest pain-free. No apparent distress. Telemetry: Sinus rhythm 60 Intake & Output 09/24/21 09/24/21 09/24/21 07:59 15:59 23:59 Intake Total 451.0 Balance 451.0 Objective Vital Signs Temp Pulse Resp BP BP Pulse Ox 09/24/21 14:01 68 133/69 96 09/24/21 12:15 98 F 61 23 156/106 93 09/24/21 12:06 98 F 63 12 146/88 95 09/24/21 11:45 98 F 61 24 146/93 94 09/24/21 11:30 98 F 59 L 14 113/88 96 09/24/21 11:18 62 09/24/21 08:00 96 09/24/21 07:54 97.7 F 71 119/64 95 09/24/21 05:00 98.5 F 68 18 141/85 98 09/24/21 00:00 98.3 F 63 20 146/84 96 09/23/21 20:47 98 09/23/21 20:42 72 09/23/21 19:24 98.2 F 72 16 133/82 95 - Physical Examination General: Appears Well, No Apparent Distress HEENT: Positive: Normocephaly, Mucus Membranes Moist Neck: Positive: neck supple, trachea midline Cardiac: Positive: Reg Rate and Rhythm, S1/S2 Lungs: Positive: Normal Exam Neuro: Positive: Grossly Intact Abdomen: Positive: Soft, Active Bowel Sounds. Negative: Tender, Distended Skin: Positive: Clear Incision: Cardiac Cath Site (Clean dry and intact. Right radial puncture site without bleeding or hematoma) Musculoskeletal: No Pain, Normal Range of Motion Extremities: Present: normal. Absent: edema - Labs and Meds CBC 09/24/21 Range/Units 05:31 Hgb 16.5 H (11.8-15.2) gm/dl Hct 48.5 H (35.5-45.6) % Plt Count 180 (140-440) K/mm3 Comprehensive Metabolic Panel 09/24/21 Range/Units 05:31 Sodium 134 L (137-145) mmol/L Potassium 4.0 (3.6-5.0) mmol/L Chloride 99.5 (98-107) mmol/L Carbon Dioxide 24 (22-30) mmol/L BUN 6 L (9-20) mg/dL Creatinine 0.7 L (0.8-1.3) mg/dL Glucose 93 (75-100) mg/dL Calcium 9.0 (8.4-10.2) mg/dL - Imaging and Cardiology EKG: report reviewed, image reviewed Echo: report reviewed Cardiac cath: report reviewed - Telemetry EKG Rhythm: Sinus Rhythm - EKG Sinus rhythms and dysrhythmias: sinus rhythm Myocardial infarction: inferior MT (old age inde, lateral MT (old age or in - Allied health notes Allied health notes reviewed: nursing
[2021-09-25 05:49] LABS: Basophils # (Auto) 0.1 K/mm3 (0.0-0.1); Basophils % (Auto) 0.5 % (0.0-1.8); Eosinophils # (Auto) 0.1 K/mm3 (0.0-0.4); Hematocrit 50.5 % (35.5-45.6); Hemoglobin 17.5 gm/dl (11.8-15.2); Lymphocytes # (Auto) 1.7 K/mm3 (1.2-5.4); Mean Corpuscular HGB Conc 35 % (32-34); Mean Corpuscular Volume 98 fl (84-94); Monocytes % (Auto) 8.8 % (0.0-7.3); Platelet Count 179 K/mm3 (140-440); Red Blood Count 5.18 M/mm3 (3.65-5.03); Red Cell Distribution Width 13.9 % (13.2-15.2)
[2021-09-25 06:08] LABS: BUN/Creatinine Ratio 9; Blood Urea Nitrogen 7 mg/dL (9-20); Calcium 9.2 mg/dL (8.4-10.2); Hemolysis Index 18
[2021-09-25] MEDS ORDERED: ASPIRIN 81 MG TAB CHEW PO SCH (10:00)
[2021-09-25] MEDS: NICOTINE 21 MG/24 HR PATCH TD SCH (10:44)
[2021-09-25] MEDS: CLOPIDOGREL 75 MG TAB PO SCH (10:45)
[2021-09-25] MEDS: METOPROLOL TARTRATE 25 MG TAB PO SCH (10:45)
[2021-09-25] MEDS: LOSARTAN 25 MG TAB PO SCH (10:45)
--- NOTE | 2021-09-25 11:00 | Progress Note ---
Assessment and Plan 50-year-old male with history of coronary arterial disease noncompliant with medications or follow-up. Is a smoker unmotivated to quit. Presents with midsternal chest pain rating to left arm. S/p PCI to RCA Assessment: Acute coronary syndrome NSTEMI Coronary artery disease Hyperlipidemia Tobacco abuse Alcohol abuse Medication noncompliance Cardiographics Cardiac catheterization 09/24/2021 : 1. Successful PCI with drug-eluting stent of the mid RCA for in-stent restenosis with a drug-eluting stent 2. Left main patent, LAD patent, diagonal patent, circumflex proximal patent, mid 50% prior to bifurcation of OM1 and OM2, which are small to medium caliber vessel patent with borderline and mild LV dysfunction and inferior posterior wall hypokinesis EKG 09/23/21: Sinus rhythm with nonspecific intraventricular conduction, inferolateral oldinfarct Echocardiogram 09/22/2021: LVEF 40 to 45%. Hypokinesis in the inferior wall Assessment/Plan: GDMT: Continue aspirin, metoprolol 25 mg p.o. twice daily, atorvastatin 80 mg p.o. nightly, Plavix 75 mg p.o. daily, losartan 25 mg p.o. daily Right radial puncture site clean dry and intact. No bleeding no hematoma Stable for discharge from cardiac standpoint. Education provided on smoking cessation and lifestyle modification. OP F/u visit scheduled for 10/05/21 @ 0900 in [place] location, with Dr. Rutledge. Patient seen in conjunction with Dr. Rutledge who agrees with the assessment and management of this patient. - Patient Problems (1) Chest pain Current Visit: Yes Status: Acute (2) NSTEMI (non-ST elevated myocardial infarction) Current Visit: Yes Status: Acute (3) Tobacco abuse Current Visit: Yes Status: Acute (4) CAD (coronary artery disease) Current Visit: Yes Status: Chronic Qualifiers: Coronary Disease-Associated Artery/Lesion type: [place] artery Associated angina: with unstable angina (5) Hyperlipemia Current Visit: Yes Status: Chronic Qualifiers: Hyperlipidemia type: mixed hyperlipidemia Qualified Code(s): E78.2 - Mixed hyperlipidemia Subjective Date of service: 09/25/21 Principal diagnosis: NSTEMI Interval history: Patient seen and examined the hospital room today. Right radial incision clean dry intact. No bleeding or hematoma. Patient is chest pain-free. No apparent distress. Telemetry: Currently not on monitor. Objective Vital Signs Temp Pulse Resp BP Pulse Ox 09/25/21 07:42 97.9 F 63 120/78 96 09/25/21 05:00 65 09/25/21 04:08 98.6 F 59 L 18 130/75 96 09/25/21 01:00 97.8 F 60 18 124/85 93 09/24/21 22:00 96 09/24/21 21:31 68 141/68 09/24/21 19:50 97.9 F 66 18 124/84 95 09/24/21 15:30 112/74 09/24/21 15:00 120/74 09/24/21 14:30 126/79 09/24/21 14:15 68 141/68 96 09/24/21 14:01 68 133/69 96 09/24/21 13:45 70 20 146/79 96 09/24/21 13:36 69 137/82 95 09/24/21 13:15 77 156/94 96 09/24/21 12:45 97.8 F 64 22 145/72 09/24/21 12:15 98 F 61 23 156/106 93 09/24/21 12:06 98 F 63 12 146/88 95 09/24/21 11:45 98 F 61 24 146/93 94 09/24/21 11:30 98 F 59 L 14 113/88 96 09/24/21 11:18 62 - Physical Examination General: Appears Well, No Apparent Distress HEENT: Positive: Normocephaly, Mucus Membranes Moist Neck: Positive: neck supple, trachea midline Cardiac: Positive: Reg Rate and Rhythm, S1/S2 Lungs: Positive: Normal Exam Neuro: Positive: Grossly Intact Abdomen: Positive: Soft, Active Bowel Sounds. Negative: Tender, Distended Skin: Positive: Clear Incision: Cardiac Cath Site (Clean dry and intact. Right radial puncture site without bleeding or hematoma) Musculoskeletal: No Pain, Normal Range of Motion Extremities: Present: normal. Absent: edema - Labs and Meds CBC 09/25/21 Range/Units 05:04 WBC 10.8 (4.5-11.0) K/mm3 RBC 5.18 H (3.65-5.03) M/mm3 Hgb 17.5 H (11.8-15.2) gm/dl Hct 50.5 H (35.5-45.6) % Plt Count 179 (140-440) K/mm3 Lymph # (Auto) 1.7 (1.2-5.4) K/mm3 [place] # (Auto) 1.0 H (0.0-0.8) K/mm3 Eos # (Auto) 0.1 (0.0-0.4) K/mm3 Baso # (Auto) 0.1 (0.0-0.1) K/mm3 Comprehensive Metabolic Panel 09/25/21 Range/Units 05:04 Sodium 135 L (137-145) mmol/L Potassium 4.3 (3.6-5.0) mmol/L Chloride 99.1 (98-107) mmol/L Carbon Dioxide 23 (22-30) mmol/L BUN 7 L (9-20) mg/dL Creatinine 0.8 (0.8-1.3) mg/dL Glucose 93 (75-100) mg/dL Calcium 9.2 (8.4-10.2) mg/dL - Imaging and Cardiology EKG: report reviewed, image reviewed Echo: report reviewed Cardiac cath: report reviewed - EKG Sinus rhythms and dysrhythmias: sinus rhythm Myocardial infarction: inferior NH (old age inde, lateral NH (old age or in - Allied health notes Allied health notes reviewed: nursing
[2021-09-25 11:22] VITALS: BP 115/76
--- NOTE | 2021-09-25 11:29 | Discharge Summary ---
Providers - Providers Date of Admission: 09/22/21 22:52 Date of discharge: 09/25/21 Attending physician: EL CUELLO MD 09/22/21 Consult to Cardiac Rehabilitation [CONS] Routine Reason For Exam: Phase I 09/22/21 22:53 Consult to Cardiology [CONS] Routine Consulting Provider: JESSICA KENNEDY Reason For Exam: CHEST PAIN 09/24/21 Consult to Cardiac Rehabilitation [CONS] Routine Reason For Exam: post pci Primary care physician: UDAY WASHINGTON Hospitalization Reason for admission: NSTEMI Condition: Fair Pertinent studies: Reviewed. Procedures: Left heart catheterization on 09/24/2021 with drug-eluting stent placed in mid RCA. Hospital course: Patient is a 50-year-old male with past medical history of CAD complicated by NM with prior PCI, tobacco dependence, hypertension, alcohol dependence, and marijuana usage who presented with complaints of chest pain with radiation to his upper extremities that was found to be secondary to NSTEMI. The patient was admitted for management of acute coronary syndrome with left heart cath eterization performed 09/24/2021. Patient had drug-eluting stent placed in the mid RCA. TTE during hospitalization was remarkable for EF 40-45% with hypokinesis in the inferior wall. Patient will continue on medical management with aspirin 81 mg daily, metoprolol tartrate 25 mg twice daily, atorvastatin 80 mg daily, Plavix 75 mg daily, and losartan 25 mg daily. Patient was counseled about lifestyle changes, and he expressed understanding. The patient will follow-up with cardiology in outpatient setting on 10/05/2021 at 9 AM in [facility]. Patient is medically clear for discharge. Disposition: 01 HOME / SELF CARE / HOMELESS Final Discharge Diagnosis (Prints w/discharge instructions): NSTEMI, chest pain, tobacco dependence, CAD status post stenting, hyperlipidemia, hypertension, diastolic and systolic heart failure, polycythemia Time spent for discharge: 45 min Core Measure Documentation - Palliative Care Palliative Care/ Comfort Measures: Not Applicable - Core Measures Any of the following diagnoses?: acute NM, history only - Acute NM Discharge Requirements Aspirin at discharge: Yes DAYNA/ARB for LVSD if EF <40%: Yes Beta aubree at discharge: Yes Statin for LDL = or >100 mg/dl on DC: Yes Exam - Constitutional Vitals: Temp Pulse Resp BP Pulse Ox 97.6 F 66 18 115/76 97 04/19/22 11:21 09/25/21 11:21 09/25/21 04:08 09/25/21 11:21 09/25/21 11:21 General appearance: Present: no acute distress, well-nourished - EENT Eyes: Present: PERRL, EOM intact ENT: hearing intact, clear oral mucosa, dentition normal - Neck Neck: Present: supple, normal ROM - Respiratory Respiratory effort: normal Respiratory: bilateral: CTA - Cardiovascular Rhythm: regular Heart Sounds: Present: S1 & S2 - Extremities Extremities: no ischemia, pulses intact, pulses symmetrical, No edema, normal temperature, normal color, Full ROM Peripheral Pulses: within normal limits - Abdominal General gastrointestinal: Present: soft, non-tender, non-distended, normal bowel sounds Male genitourinary: Present: deferred - Rectal Rectal Exam: deferred - Integumentary Integumentary: Present: clear, warm, dry - Musculoskeletal Musculoskeletal: strength equal bilaterally - Psychiatric Psychiatric: appropriate mood/affect, memory intact, cooperative - Neurologic Neurologic: CNII-XII intact, moves all extremities - Allied Health Allied health notes reviewed: nursing Plan Activity: advance as tolerated Diet: low salt Additional Instructions: Patient is a 50-year-old male with past medical history of CAD complicated by NM with prior PCI, tobacco dependence, hypertension, alcohol dependence, and marijuana usage who presented with complaints of chest pain with radiation to his upper extremities that was found to be secondary to NSTEMI. The patient was admitted for management of acute coronary syndrome with left heart catheterization performed 09/24/2021. Patient had drug-eluting stent placed in the mid RCA. TTE during hospitalization was remarkable for EF 40-45% with hypokinesis in the inferior wall. Patient will continue on medical management with aspirin 81 mg daily, metoprolol tartrate 25 mg twice daily, atorvastatin 80 mg daily, Plavix 75 mg daily, and losartan 25 mg daily. Patient was counseled about lifestyle changes, and he expressed understanding. The patient will follow-up with cardiology in outpatient setting on 10/05/2021 at 9 AM in [facility]. Patient is medically clear for discharge. Care Plan Goals: Patient is medically cleared for discharge. Assessment: Patient is a 50-year-old male with past medical history of CAD complicated by NM with prior PCI, tobacco dependence, hypertension, alcohol dependence, and ma rijuana usage who presented with complaints of chest pain with radiation to his upper extremities that was found to be secondary to NSTEMI. The patient was admitted for management of acute coronary syndrome with left heart catheterization performed 09/24/2021. Patient had drug-eluting stent placed in the mid RCA. TTE during hospitalization was remarkable for EF 40-45% with hypokinesis in the inferior wall. Patient will continue on medical management with aspirin 81 mg daily, metoprolol tartrate 25 mg twice daily, atorvastatin 80 mg daily, Plavix 75 mg daily, and losartan 25 mg daily. Patient was counseled about lifestyle changes, and he expressed understanding. The patient will follow-up with cardiology in outpatient setting on 10/05/2021 at 9 AM in [place] location. Patient is medically clear for discharge. Follow up with: UDAY WASHINGTON MD [Primary Care Provider] - 7 Days JESSICA KENNEDY MD [Staff Physician] - 10/05/21 9:00 am Prescriptions: AtorvaSTATin [Lipitor] 80 mg PO QHS 30 Days #60 tab Aspirin [Aspirin BABY CHEW TAB] 81 mg PO QDAY #30 tab.chew Losartan [Cozaar] 25 mg PO QDAY #30 tablet Nicotine [Habitrol] 21 mg TD QDAY #30 patch Metoprolol [Lopressor TAB] 25 mg PO BID 30 Days #60 tablet Nitroglycerin [Nitrostat] 0.4 mg SL Q5M PRN #30 tablet PRN Reason: Chest Pain Clopidogrel [Plavix] 75 mg PO QDAY 30 Days #30 tablet
--- NOTE | 2021-09-25 11:30 | Electrocardiograph Report ---
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
== END 2021-09-25 13:53 | disposition home or self-care (01) | DRG 247 ==
LOC: ED 17:33 → 4A 22:52
PROVIDERS: ADMIT Internal Medicine Geriatric Medicine; ATTEND Student in an Organized Health Care Education/Training Program
PROC: 027135Z Dilation of Coronary Artery, Two Arteries with Two Drug-eluting Intraluminal Devices, Percutaneous Approach (ICD-10-PCS; principal; 2021-09-24)
PROC: 4A023N7 Measurement of Cardiac Sampling and Pressure, Left Heart, Percutaneous Approach (ICD-10-PCS; 2021-09-24)
PROC: B2111ZZ Fluoroscopy of Multiple Coronary Arteries using Low Osmolar Contrast (ICD-10-PCS; 2021-09-24)
PROC: B2151ZZ Fluoroscopy of Left Heart using Low Osmolar Contrast (ICD-10-PCS; 2021-09-24)
DX: I21.4 Non-ST elevation (NSTEMI) myocardial infarction (principal); I50.42 Chronic combined systolic (congestive) and diastolic (congestive) heart failure; E78.5 Hyperlipidemia, unspecified; I24.9 Acute ischemic heart disease, unspecified; D75.1 Secondary polycythemia; F17.210 Nicotine dependence, cigarettes, uncomplicated; Z95.5 Presence of coronary angioplasty implant and graft; I11.0 Hypertensive heart disease with heart failure; I25.10 Atherosclerotic heart disease of native coronary artery without angina pectoris; Z91.14 Patient's other noncompliance with medication regimen
CPT/HCPCS: 36415; 71045; 80048; 80061; 82550; 82553; 83880; 84484; 85014; 85018; 85025; 85049; 85520; 85610; 85730; 92928; 92978; 93005; 93306; 93458; 99406; G0378; J1815; J3490; C1753; C1769; C1874; C1887; C1894; C8929; C9600; J1644; J2250; J3010; J7040; Q9967